=== PATIENT | male | born 1990 | race Caucasian/White ===

== ENCOUNTER 2017-06-19 17:29 | Emergency (ER) | payer OTHER ==
[2017-06-19] MEDS ORDERED: Lidocaine 1% 30 ML SDV INFILT ONE (17:30)
--- NOTE | 2017-06-19 18:54 | EDM.PDOC ---
ED HPI GENERAL MEDICAL PROBLEM - General Chief Complaint: Laceration Stated Complaint: WCND-RT HAND LACERATION Time Seen by Provider: 06/19/17 18:15 Source of Information: Reports: Patient History Limitations: Reports: No Limitations - History of Present Illness INITIAL COMMENTS - FREE TEXT/NARRATIVE: c/o R hand lac works at [email or web address], fell on gravel, lac of R palm last Td unknown Right Hand Pain Score (Numeric/FACES): 3 - Related Data Allergies Allergy/AdvReac Type Severity Reaction Status Date / Time No Known Allergies Allergy Verified 06/19/17 17:50 Home Meds: Home Meds Cephalexin 500 mg PO TID #9 tablet 06/19/17 [Rx] Diazepam [Valium] 2 mg PO ACLUNCH MDD 4mg 06/19/17 [History] Past Medical History Psychiatric History: Reports: Anxiety Social & Family History - Family History Family Medical History: Noncontributory - Tobacco Use Smoking Status *Q: Current Every Day Smoker Years of Tobacco use: 12 Packs/Tins Daily: 1 - Caffeine Use Caffeine Use: Reports: Coffee, Soda - Recreational Drug Use Recreational Drug Use: No ED ROS GENERAL - Review of Systems Review Of Systems: See Below Constitutional: Reports: No Symptoms HEENT: Reports: No Symptoms Respiratory: Reports: No Symptoms Cardiovascular: Reports: No Symptoms Endocrine: Reports: No Symptoms GI/Abdominal: Reports: No Symptoms : Reports: No Symptoms Musculoskeletal: Reports: No Symptoms Skin: Reports: Wound Neurological: Reports: No Symptoms Psychiatric: Reports: No Symptoms Hematologic/Lymphatic: Reports: No Symptoms Immunologic: Reports: No Symptoms ED EXAM, SKIN/RASH Exam: See Below Exam Limited By: No Limitations General Appearance: Alert, WD/WN, No Apparent Distress Head: Atraumatic, Normocephalic Neck: Normal Inspection, Supple, Non-Tender, Full Range of Motion Respiratory/Chest: No Respiratory Distress Cardiovascular: Regular Rate, Rhythm Extremities: Normal Inspection, Normal Range of Motion, Non-Tender Neurological: Alert, Oriented, CN II-XII Intact, Normal Cognition, Normal Gait, No Motor/Sensory Deficits Psychiatric: Normal Affect, Normal Mood Skin: Warm, Dry, Normal Color, No Rash, Other (R palm in midline at base there is a 3 cm linear lac just into fat layer, no f.b., 1% lido without epi with #27 needle used for local with good analgesia, closed 3-0 Ethilon x 5, good apposition of margins, cleaned with gauze and NS x 12 prior to closure, tolerated well, 3 cm long) Lymphatic: No Adenopathy Course - Vital Signs Last Recorded V/S: Last Vital Signs Temp 36.6 C 06/19/17 17:51 Pulse 75 06/19/17 17:51 Resp 14 06/19/17 17:51 BP 122/78 06/19/17 17:51 Pulse Ox 99 06/19/17 17:51 Departure - Departure Time of Disposition: 18:52 Disposition: Home, Self-Care 01 Condition: Good Clinical Impression: Laceration of right hand - Discharge Information Prescriptions: Cephalexin 500 mg PO TID #9 tablet Instructions: Laceration Care, Adult Referrals: PCP,Not In Area [Primary Care Provider] - Additional Instructions: Keep clean and dry and covered with a dressing. Leave open to air for 10 minutes if hand is getting sweaty. Do not lift over 5 pounds with right hand for next week. Avoid putting pressure on palm. Wear a glove over the dressing when working. To decrease risk of infection, take cephalexin 500 mg 1 tab 3 times a day for 3 days. See a physician the same day for any increase in redness, swelling, pain, warmth , fever or drainage. See your doctor in 1 week to remove sutures. Call your Physician or Return to Emergency Department if: * Your condition worsens in any way. * You develop fever greater than 100.4. * You have vomitting that does not stop with medications. * You have pain that is not controlled with medications.
[2017-06-19] MEDS: Diphtheria,Pertussis(Acell),Tetanus Vaccine 0.5 ML SDV IM ONE (19:16)
[2017-06-19] MEDS: Cephalexin 500 MG Cap PO ONE (19:21)
== END 2017-06-19 19:23 | disposition home or self-care (01) ==
LOC: FB.ED 17:29
DX: S61.411A Laceration without foreign body of right hand, initial encounter (principal); F17.210 Nicotine dependence, cigarettes, uncomplicated; W18.00XA Striking against unspecified object with subsequent fall, initial encounter; Y99.0 Civilian activity done for income or pay
CPT/HCPCS: 12002; 90471; 90715; 99000; 99282; A9270-GY